=== PATIENT | female | born 1975 | race Caucasian/White ===

== ENCOUNTER → 2016-09-21 | Day surgery (SDC) | payer OTHER ==
[2016-09-21 08:52] LABS: HCT 41.9 % (37.0-47.0); MCH 30.8 pg (25.0-31.0); MCHC 33.4 g/dL (32.0-36.0); MCV 92.1 fL (78.0-100.0); MPV 10.8 fL (6.0-9.5); RBC 4.55 M/uL (4.20-5.40); RDW 12.7 % (11.5-14.0)
[2016-09-21 09:03] LABS: ALBUMIN 4.2 g/dL (3.5-5.0); BILIRUBIN - TOTAL 1.3 mg/dL (0.1-1.0); CREATININE 0.7 mg/dL (0.5-1.0); GLOBULIN (CALCULATION) 2.7 g/dL (2.2-4.2); POTASSIUM 3.9 mmol/L (3.5-5.1); TOTAL PROTEIN 6.9 g/dL (6.4-8.3)
== END | disposition home or self-care (01) ==
LOC: FAS 08:26
PROVIDERS: Surgery
DX: K29.50 Unspecified chronic gastritis without bleeding (principal); K58.9 Irritable bowel syndrome, unspecified; K21.9 Gastro-esophageal reflux disease without esophagitis; I73.00 Raynaud's syndrome without gangrene; M81.0 Age-related osteoporosis without current pathological fracture; Z80.0 Family history of malignant neoplasm of digestive organs; Z88.8 Allergy status to other drugs, medicaments and biological substances; Z79.899 Other long term (current) drug therapy
CPT/HCPCS: 36415; 80053; 88305; J2704

== ENCOUNTER → 2021-02-24 | Day surgery (SDC) | payer OTHER ==
[~2021-02-24] VITALS: Ht 160 cm; Wt 83.9 kg
[~2021-02-24] MED LIST: ALLEGRA ALLERG180 MG PO; ASCORBIC ACID500 MG PO; CLARITIN10 MG PO; CYMBALTA 30MG C30 MG PO; FASENRA30 MG/1 ML IJ; HCTZ25 MG PO; MUCINEX 600MG600 MG PO; PRILOSEC20 MG PO; SINGULAIR10 MG PO; SYMBICORT 80-10.2 GM INH; VENTOLIN (2.5 MG/3 M INH; VENTOLIN HFA IN18 GM INH; VOLTAREN **OUT50 MG PO
[2021-02-24 08:28] LABS: HGB 16.4 g/dl (12.5-16.0); MCH 31.5 pg (25.0-31.0); MCHC 33.5 g/dL (32.0-36.0); MPV 10.9 fL (6.0-9.5); RBC 5.21 M/uL (4.20-5.40); RDW 12.5 % (11.5-14.0); WBC 9.1 K/uL (4.0-10.5)
[2021-02-24 08:48] LABS: ALBUMIN 4.8 g/dL (3.4-5.0); BILIRUBIN - TOTAL 1.2 mg/dL (0.2-1.0); BUN/CREAT RATIO (CALC) 11.2 RATIO; CREATININE 0.8 mg/dL (0.51-0.95); GLOBULIN (CALCULATION) 4.2 g/dL; POTASSIUM 3.6 mmol/L (3.5-5.1)
== END | disposition home or self-care (01) ==
LOC: FAS 07:49
PROVIDERS: Surgery
DX: K58.9 Irritable bowel syndrome, unspecified (principal); R63.0 Anorexia; R11.0 Nausea; Z90.710 Acquired absence of both cervix and uterus
CPT/HCPCS: 36415; 80053; J1610; J2250; J2405; J2704; J7120

== ENCOUNTER 2021-03-12 11:55 | Emergency (ER) | payer OTHER ==
[~2021-03-12 11:55] MED LIST changes: +NORCO 5-325 TA1 EACH PO; +ONDANSETRON ODT8 MG PO
[2021-03-12 13:08] LABS: BASOPHIL 0.4 % (0-2); EOSINOPHIL 0 % (0-5); HCT 43.9 % (37.0-47.0); HGB 14.6 g/dl (12.5-16.0); LYMPHOCYTE 32.8 % (15-48); MCH 31.3 pg (25.0-31.0); MCHC 33.3 g/dL (32.0-36.0); MONOCYTE 5.3 % (0-12); MPV 10.3 fL (6.0-9.5); NEUTROPHIL 61.1 % (41-80); NRBC 0; PLT 208 K/uL (150-400); RBC 4.67 M/uL (4.20-5.40); RDW 12.5 % (11.5-14.0); WBC 5.5 K/uL (4.0-10.5)
[2021-03-12 13:21] LABS: BUN/CREAT RATIO (CALC) 17.2 RATIO; CREATININE 0.64 mg/dL (0.51-0.95); POTASSIUM 3.8 mmol/L (3.5-5.1)
[2021-03-12 13:29] LABS: PRO-BNP 15 pg/mL (<125)
[2021-03-12 13:36] LABS: CORONAVIRUS 2019 SARS-COV-2 NEGATIVE (NEGATIVE); INFLUENZA A NAA NEGATIVE (NEGATIVE)
[2021-03-12] MEDS ORDERED: MEDROL 4MG DOSEP4 MG PO (16:40)
[2021-03-12] MEDS ORDERED: KETOROLAC TROME10 MG PO (16:45)
== END 2021-03-12 16:55 | disposition home or self-care (01) ==
LOC: FER 11:55
PROVIDERS: Nurse Practitioner Family
DX: J90 Pleural effusion, not elsewhere classified (principal); J02.9 Acute pharyngitis, unspecified; Z20.822 Contact with and (suspected) exposure to COVID-19; Z88.7 Allergy status to serum and vaccine
CPT/HCPCS: 36415; 71045; 71275; 80048; 83605; 83880; 84145; 84484; 85025; 85379; 87880; 93005; J1885; J7030; J7040; Q9967; U0002